=== PATIENT | female | born 1950 | race Caucasian/White ===

== ENCOUNTER → 2017-07-18 | Outpatient (CLI) | payer MEDICARE ==
[~2017-07-18] MED LIST: ALEVE; IRON; MULTIVITAMIN; PHENERGAN12.5 M1; Z.0.IBUPROFEN600 MG PO; Z.0.LISINOPRIL20 MG PO; Z.0.LOVENOX40 MG/0.4 SQ; Z.0.NORCO 10-325 T1 PO
--- NOTE | 2017-07-19 07:42 | Diagnostic Imaging Report ---
History: No back pain Comparison studies: None Technique: Sagittal, coronal and axial T2 , sagittal T1 and IR, axial spin density oblique. Intravenous contrast: None Findings: Number of lumbar vertebral bodies:5 Alignment: Straightening of the normal lordosis.No scoliosis. Soft tissues: No T2 hyperintense inflammatory changes. Paraspinal muscles: No signal abnormalities. No atrophy. Lower thoracic cord:Normal in signal and morphology. The tip of the conus is at L1-L2. Cauda equina: No masses. No arachnoiditis. Vertebrae: Normal in height and signal intensity. No compression fractures, infection or neoplasm. Degenerative changes: L1-L2: Disc degeneration with loss of T2 signal. Central 2.1 x 0.7 x 1.2 cm (SI-[id number]) superiorly migrated disc disc extrusion results in moderate canal stenosis, obliteration of the left L1 lateral and L2 subarticular recesses. Patent foramina. L2-L3: Disc degeneration with loss of T2 signal. Diffuse disc bulge without significant canal stenosis and mild bilateral foraminal narrowing. Trace of fluid at the bilateral facet joints, secondary to mild synovitis changes. L3-L4: Disc degeneration with loss of T2 signal. Asymmetric right disc bulge, mild facet hypertrophy and ligamentum flavum thickening results in mild canal stenosis, mild right and moderate left foraminal narrowing. Trace of fluid at the bilateral facet joints, secondary to mild synovitis changes. L4-L5: Disc degeneration with loss of T2 signal. Diffuse disc bulge, moderate facet hypertrophy and ligamentum flavum thickening results in moderate canal stenosis, mild right and moderate left foraminal narrowing. Left extraforaminal small annular fissure. L5-S1: Disc degeneration with loss of T2 signal. Diffuse disc bulge with superimposed central disc protrusion, mild right and moderate left facet hypertrophy results in mild canal stenosis, narrowing of the left subarticular recesses, moderate right and mild left foraminal narrowing. Additional findings: None IMPRESSION: Moderate canal stenosis and obliteration of the left L1 lateral and L2 subarticular recesses at L1-L2 secondary to central superiorly migrated disc extrusion. Impingement of the descending L1 and L2 nerve roots at the lateral and subarticular recesses respectively. Moderate degenerative foraminal narrowing at left L3-L4, left L4-L5 and L5-S1 on the right. Narrowing of the left subarticular recesses at L5-S1 secondary to central disc protrusion and posterior alignment hypertrophy. Possible impingement of the descending S1 nerve root at the subarticular recesses. Signed by: DR Santhosh Lee M.D. on 07/19/2017 7:39 AM
== END ==
LOC: MRI 07:32
PROVIDERS: ATTEND Family Medicine
DX: M54.16 Radiculopathy, lumbar region (principal)
CPT/HCPCS: 72148

== ENCOUNTER → 2017-10-03 | Outpatient (CLI) | payer MEDICARE ==
--- NOTE | 2017-10-03 13:45 | Diagnostic Imaging Report ---
PROCEDURE: Frontal and lateral views of the chest. COMPARISON: 12/30/16 INDICATIONS: CARDIAC CLEARANCE TO HAVE LOWER BACK SURGERY FINDINGS: Lines/tubes: None. Lungs: The lungs are well inflated and clear. There is no evidence of pneumonia or pulmonary edema. Pleura: There is no pleural effusion or pneumothorax. Heart and mediastinum: The heart and the mediastinum are normal. Bones: No acute bony abnormality. IMPRESSION: 1. No acute cardiopulmonary disease. Dictated by: Hema Bell M.D. on 10/03/2017 at 13:50 Electronically approved by: Hema Bell M.D. on 10/03/2017 at 13:50
== END ==
LOC: RAD 12:38
PROVIDERS: ATTEND Family Medicine
DX: Z01.810 Encounter for preprocedural cardiovascular examination (principal)
CPT/HCPCS: 71046

== ENCOUNTER → 2020-12-16 | Outpatient (CLI) | payer MEDICARE | LOC: RAD 11:10 | PROVIDERS: ATTEND Family Medicine | DX: M54.50 Low back pain, unspecified (principal) | CPT/HCPCS: 72110 ==